=== PATIENT | female | born 1975 | race Caucasian/White ===

== ENCOUNTER → 2022-04-04 11:33 | Outpatient (BNVA) | payer BC, SELFPAY | PROVIDERS: PCP Nurse Practitioner Family; Visit Provider Nurse Practitioner Family | DX: U07.1 COVID-19 (principal); F06.4 Anxiety disorder due to known physiological condition; R14.0 Abdominal distension (gaseous); K31.84 Gastroparesis; U09.9 Post COVID-19 condition, unspecified; R00.1 Bradycardia, unspecified; R00.2 Palpitations; R52 Pain, unspecified | CPT/HCPCS: 80053; 84439; 84443; 84481; 86140; 86160; 86162; 86235; 86255; 86376 ==

== ENCOUNTER → 2023-02-11 11:48 | Outpatient (BNVA) | payer BC, SELFPAY | PROVIDERS: PCP Nurse Practitioner Family; Visit Provider Nurse Practitioner Family | DX: R63.8 Other symptoms and signs concerning food and fluid intake (principal); H93.12 Tinnitus, left ear; J30.2 Other seasonal allergic rhinitis | CPT/HCPCS: 80053; 82306; 84443 ==

== ENCOUNTER → 2023-07-11 11:28 | Outpatient (BNVA) | payer BC, SELFPAY | PROVIDERS: PCP Nurse Practitioner Family; Visit Provider Nurse Practitioner Family | DX: J30.2 Other seasonal allergic rhinitis (principal); Z71.84 Encounter for health counseling related to travel; E66.9 Obesity, unspecified; R00.2 Palpitations | CPT/HCPCS: 80053; 84443 ==

== ENCOUNTER → 2024-02-02 11:57 | Outpatient (BNVA) | payer BC, SELFPAY | PROVIDERS: PCP Nurse Practitioner Family; Visit Provider Nurse Practitioner Family | DX: A09 Infectious gastroenteritis and colitis, unspecified (principal) | CPT/HCPCS: 80053; 85025 ==